=== PATIENT | female | born 1970 | race African-American/Black ===

== ENCOUNTER 2020-05-05 15:29 | Emergency (ER) | payer MEDICAID ==
[~2020-05-05] VITALS: Ht 165.1 cm; Wt 68.5 kg
[2020-05-05 15:35] VITALS: BP_SYST 114
--- NOTE | 2020-05-05 15:35 | NUR ---
Patient to ER bed 7 to gown for evaluation. Side rails up. Report given to [place].
--- NOTE | 2020-05-05 15:40 | NUR ---
PT AAO AND AMBULATORY REPORTING RIGHT GROIN PAIN FOR THE PAST FIVE DAYS. PT HAD APPT WITH PMD AND WAS REFERRED HERE FOR FURTHER TREATMENT. PT REPORTS PAIN 10/10 AND WORSENING SCIATICA PAIN THAT RADIATES DOWN RIGHT LEG.
--- NOTE | 2020-05-05 16:00 | NUR ---
COLLINS TO ASSUME CARE. PT CALM, ALERT, RESP UNLABORED, NO DISTRESS
--- NOTE | 2020-05-05 16:25 | NUR ---
DR BAUTISTA IN TO ASSESS
[2020-05-05] MEDS ORDERED: cephALEXin 500 MG CAPSULE PO ONE (16:45)
[2020-05-05] MEDS ORDERED: IBUPROFEN 600 MG TABLET PO ONE (16:45)
[2020-05-05] MEDS ORDERED: SULFAMETHOXAZOLE/TRIMETHOPR DS 1 TABLET PO ONE (16:45)
[2020-05-05 16:49] VITALS: BP_SYST 114
--- NOTE | 2020-05-05 16:50 | NUR ---
Patient given written and verbal discharge instructions and verbalizes understanding. ER MD discussed with patient the results and treatment provided. Patient in stable condition. ID arm band removed. Rx of Bactrium, Keflex, Motrin, [place] given. Patient educated on pain management and to follow up with PMD. Pain Scale 3/10. Opportunity for questions provided and answered. Medication side effect fact sheet provided.
== END 2020-05-05 16:50 | disposition home or self-care (01) ==
LOC: SED 15:29
DX: I88.9 Nonspecific lymphadenitis, unspecified (principal); Z88.0 Allergy status to penicillin
CPT/HCPCS: 99284